=== PATIENT | male | born 1960 | race Caucasian/White ===

== ENCOUNTER 2018-04-11 12:23 | Inpatient (IN) | payer OTHER ==
--- NOTE | 2018-04-11 14:16 | CT ---
CT BRAIN WITHOUT CONTRAST: Date: 04/11/18 HISTORY: Injury. FINDINGS: There is a small parasagittal/parafalcine acute subdural hematoma predominantly anteriorly. No eviden ce of infarct, intra-axial hemorrhage, or midline shift is seen. The ventricular size is appropriate and the basilar cisterns are patent. Old lacunar infarct is seen in the basal ganglia. The bony hilary rium is intact. There is fluid in the right maxillary sinus. IMPRESSION: Small, acute parasagittal/parafalcine subdural hematoma. Discussed over the telephone with Lea Judge NP, in the emergency room at 1358 hours. CODE CR. POS: [facility]
[2018-04-11 14:38] LABS: INR-International Normal Ratio 0.9; PTT 25.4 SEC (22.9-36.1); Prothrombin Time 12.7 SEC (12.0-14.7)
[2018-04-11 14:40] LABS: #Lymphocytes 0.8 thou/uL (1.20-3.40); #Monocytes 0.6 thou/uL (0.11-0.59); #Neutrophils 9.7 thou/uL (1.40-6.50); %Basophils 0.3 % (0.0-1.0); %Eosinophils 0.4 % (0.0-10.0); %Monocytes 5.1 % (0.0-10.0); %Neutrophils 87.2 % (42.0-75.0); Hemoglobin 15.3 g/dL (14.0-18.0); Mean Corpuscular HGB CONC 33.6 g/dL (32.0-36.0); Mean Corpuscular Volume 89.2 fL (78.0-98.0); Mean Platelet Volume 6.4 fL (7.4-10.4); Platelet Count 217 thou/uL (130-400); RBC Distribution Width 12.6 % (11.5-14.5); Red Blood Cell (RBC) Count 5.11 mill/uL (4.70-6.10); White Blood Cell (WBC) Count 11.1 thou/uL (4.8-10.8)
[2018-04-11 14:53] LABS: ALT (SGPT) 25 U/L (8-55); AST (SGOT) 24 U/L (5-34); Albumin 4.2 g/dL (3.5-5.0); Alkaline Phosphatase 83 U/L (40-150); Anion Gap 12 mmol/L (10-20); BUN (Urea Nitrogen) 12 mg/dL (8.4-25.7); Bilirubin, Total 0.7 mg/dL (0.2-1.2); Calc. Creatinine Clearance 0 mL/min (70-130); Carbon Dioxide 26 mmol/L (22-29); Chloride 104 mmol/L (98-107); Estimated GFR-MDRD Greater than 90; Globulin 3.1 g/dL (2.4-3.5); Glucose 107 mg/dL (70-105); Potassium 3.9 mmol/L (3.5-5.1); Protein, Total 7.3 g/dL (6.0-8.3); Sodium 138 mmol/L (136-145)
--- NOTE | 2018-04-11 14:53 | CT ---
CERVICAL SPINE CT SCAN WITHOUT IV CONTRAST: FINDINGS: There is some generalized spondylosis, particularly at C3-4 and C5-6 with disc osteophytosis with naresh e variably severity up to mild to moderate canal, lateral recess, and foraminal stenosis particularly at C5-6. No acute fracture or facet dislocation. IMPRESSION: No acute fracture or facet dislocation. Cervical spondylosis. POS: [facility]
[2018-04-11] MEDS ORDERED: Adacel (T-DAP) 0.5 ML VIAL ONE (15:06)
[2018-04-11] MEDS ORDERED: Dextrose 5% in Water 1,000 ML IV PRN (15:24)
[2018-04-11] MEDS ORDERED: Dextrose 50% Abboject 50 ML SYRINGE SLOW IVP PRN (15:24)
[2018-04-11] MEDS ORDERED: Ondansetron PF 4 MG/2 ML Vial IVP PRN (15:24)
[2018-04-11] MEDS ORDERED: Ondansetron ODT 4 MG TAB PO PRN (15:24)
[2018-04-11] MEDS ORDERED: Acetaminophen 500 MG TAB ONE (15:36)
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
[2018-04-11] MEDS ORDERED: Ondansetron PF 4 MG/2 ML Vial ONE (17:04)
[2018-04-11] MEDS: Sodium Chloride 0.9% 1,000 ML IV SCH (20:42)
[2018-04-11] MEDS ORDERED: traMADol HCl 50 MG TAB PO PRN (20:48)
[2018-04-11] MEDS: Acetaminophen 500 MG TAB PO SCH (21:23)
[2018-04-11 22:52] VITALS: BMI 25.5
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
[2018-04-12] MEDS: Sodium Chloride 0.9% 1,000 ML IV SCH ×2 (02:59→12:39)
[2018-04-12] MEDS: Acetaminophen 500 MG TAB PO SCH ×3 (03:00→14:20)
[2018-04-12 06:06] LABS: Anion Gap 12 mmol/L (10-20); BUN (Urea Nitrogen) 10 mg/dL (8.4-25.7); Calc. Creatinine Clearance 128 mL/min (70-130); Calcium 8.5 mg/dL (7.8-10.44); Carbon Dioxide 21 mmol/L (22-29); Chloride 105 mmol/L (98-107); Estimated GFR-MDRD Greater than 90; Glucose 102 mg/dL (70-105); Potassium 4.1 mmol/L (3.5-5.1); Sodium 134 mmol/L (136-145)
[2018-04-12 07:35] VITALS: TEMP 97.9
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
[2018-04-12] MEDS ORDERED: Prevnar 13-Val Conj/PF 0.5 ML SYRINGE IM ONE (09:00)
[2018-04-12 10:56] VITALS: BP 135/79
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
== END 2018-04-12 14:21 | DRG 86 ==
LOC: ERS 12:23 → SURG A 20:23
PROVIDERS: ADMIT Surgery; ATTEND Surgery
DX: S06.5X0A Traumatic subdural hemorrhage without loss of consciousness, initial encounter (principal); B20 Human immunodeficiency virus [HIV] disease; Y04.2XXA Assault by strike against or bumped into by another person, initial encounter; Y92.149 Unspecified place in prison as the place of occurrence of the external cause; S02.2XXA Fracture of nasal bones, initial encounter for closed fracture; I10 Essential (primary) hypertension; E78.5 Hyperlipidemia, unspecified; S01.81XA Laceration without foreign body of other part of head, initial encounter; B19.20 Unspecified viral hepatitis C without hepatic coma; K21.9 Gastro-esophageal reflux disease without esophagitis
CPT/HCPCS: 12011; 36415; 70450; 70486; 72125; 80048; 80053; 85025; 85610; 85730; 90471; 90715; 96361; 96374; G8978-GP-CI; G8979-GP-CI; G8980-GP-CI; G8987-GO-CI; G8988-GO-CI; G8989-GO-CI; J2405